=== PATIENT | female | born 1930 | race Two or more races ===

== ENCOUNTER 2021-04-07 06:48 | Emergency (ER) | payer MEDICARE, OTHER ==
[~2021-04-07] VITALS: Ht 165.1 cm; Wt 72.6 kg
[~2021-04-07 06:48] MED LIST: ALLO100T PO; AMIO200T33 PO; APIX2.5T PO; GABA-339 PO; HYDR-4072 PO; LEVO125T PO; METO1TAB77 PO; TRAZ100T3 PO
[2021-04-07 07:36] VITALS: BP 184/104
[2021-04-07] MEDS ORDERED: cloNIDine HCL 0.1 MG TAB PO ONE (08:00)
[2021-04-07] MEDS ORDERED: FUROSEMIDE 20 MG/2 ML VIAL IV ONE (10:45)
[2021-04-07 11:05] LABS: Basophils # (auto) 0.1 10 ^3/uL (0-0.2); Basophils % (auto) 1.1 % (0.0-2.0); Eosinophils # (auto) 0 10 ^3/uL (0-0.8); Hematocrit 43.3 % (36.0-46.0); Hemoglobin 13.7 g/dL (12.2-16.2); Lymphocytes # (auto) 0.8 10 ^3/uL (0.4-5.4); Mean Corpuscular Hemoglobin 32.3 pg (28.0-32.0); Mean Corpuscular Hgb Conc. 31.5 g/dL (32.0-36.0); Mean Corpuscular Volume 102.5 fL (80.0-100.0); Monocytes # (auto) 0.2 10 ^3/uL (0-1.3); Monocytes % (auto) 4.3 % (0.0-12.0); Neutrophils # (auto) 3.5 10 ^3/uL (1.6-8.6); Neutrophils % (auto) 76.6 % (37.0-80.0); Red Blood Cells 4.22 10^6/uL (4.0-5.20); Red Cell Distribution Width 19.9 % (11.8-14.3); White Blood Cell 4.6 10^3/uL (4.4-10.8)
[2021-04-07 11:15] LABS: INR 1.66 (0.9-1.15); Partial Thromboplastin Time 31.8 sec (23.6-33.0)
[2021-04-07 11:22] LABS: Albumin 2.5 g/dL (3.4-5.0); Calcium 9.8 mg/dL (8.5-10.1); Chloride 112 mmol/L (98-107); Potassium 4.6 mmol/L (3.5-5.1); Sodium 140 mmol/L (136-145)
[2021-04-07 11:31] LABS: Alanine Aminotransferase 12 U/L (13-56); Alkaline Phosphatase 340 U/L (45-117); Anion Gap 2 (5-15); Aspartate Aminotransferase 25 U/L (15-37); BUN/Creatinine Ratio 29.2; Bilirubin, Total 0.6 mg/dL (0.2-1.0); Blood Urea Nitrogen 28 mg/dL (7-18); Carbon Dioxide 26 mmol/L (21-32); GFR African American 71 mL/min; GFR Non-African American 58 mL/min; Glucose 82 mg/dL (74-106); Total Protein 6.4 g/dL (6.4-8.2)
== END 2021-04-07 15:07 | disposition home or self-care (01) ==
LOC: ER 06:48 → EDBD 06:48 → ER 15:07
DX: M25.552 Pain in left hip (principal); I11.0 Hypertensive heart disease with heart failure; I50.9 Heart failure, unspecified; M88.9 Osteitis deformans of unspecified bone; Z86.73 Personal history of transient ischemic attack (TIA), and cerebral infarction without residual deficits
CPT/HCPCS: 36415; 70450; 71045; 73700; 80053; 84484; 85025; 85610; 85730; 93005

== ENCOUNTER 2021-06-17 10:31 | Inpatient (IN) | payer MEDICARE, OTHER ==
[~2021-06-17] VITALS: Ht 160 cm; Wt 64.0 kg
[2021-06-17] MEDS ORDERED: methylPREDNISolone SOD SUCC 125 MG/2 ML VL IV ONE (12:00)
[2021-06-17 12:32] LABS: Basophils # (auto) 0 10 ^3/uL (0-0.2); Basophils % (auto) 0.7 % (0.0-2.0); Eosinophils # (auto) 0.1 10 ^3/uL (0-0.8); Lymphocytes # (auto) 0.6 10 ^3/uL (0.4-5.4)
[2021-06-17 12:39] LABS: Eosinophils % (auto) 1.1 % (0.0-7.0); Hematocrit 41.4 % (36.0-46.0); Hemoglobin 13.5 g/dL (12.2-16.2); Lymphocytes % (auto) 9.4 % (10.0-50.0); Mean Corpuscular Hemoglobin 33.9 pg (28.0-32.0); Mean Corpuscular Hgb Conc. 32.6 g/dL (32.0-36.0); Mean Corpuscular Volume 103.9 fL (80.0-100.0); Monocytes # (auto) 0.5 10 ^3/uL (0-1.3); Monocytes % (auto) 7.4 % (0.0-12.0); Neutrophils # (auto) 5.1 10 ^3/uL (1.6-8.6); Neutrophils % (auto) 81.4 % (37.0-80.0); Nucleated Red Blood Cells % 0.2 %; Red Blood Cells 3.98 10^6/uL (4.0-5.20); Red Cell Distribution Width 17.6 % (11.8-14.3); White Blood Cell 6.2 10^3/uL (4.4-10.8)
[2021-06-17 12:45] LABS: Albumin 2.6 g/dL (3.4-5.0); Calcium 9.4 mg/dL (8.5-10.1); Potassium 4.5 mmol/L (3.5-5.1)
[2021-06-17 13:01] LABS: BUN/Creatinine Ratio 28.8; Bilirubin, Total 0.7 mg/dL (0.2-1.0); Total Protein 6.5 g/dL (6.4-8.2)
[2021-06-17] MEDS ORDERED: NITROGLYCERIN 0.4 MG SL TAB SL PRN (21:00)
[2021-06-17] MEDS ORDERED: cefTRIAXone 1GM/50ML D5W 50 ML IV ONE (21:00)
[2021-06-17] MEDS ORDERED: ACETAMINOPHEN 325 MG TAB PO PRN (21:00)
[2021-06-17] MEDS ORDERED: AZITHROMYCIN 500MG/ 250ML 250 ML IV ONE (21:00)
[2021-06-17] MEDS ORDERED: ALBUTEROL SULF 2.5 MG/0.5ML(0.5%) NEB SOLN NEB PRN (21:00)
[2021-06-17] MEDS ORDERED: LORazepam 2MG/ML-1ML VIAL IV ONE ×2 (21:00→23:15)
[2021-06-17] MEDS ORDERED: FUROSEMIDE 20 MG/2 ML VIAL IV ONE (21:00)
[2021-06-17] MEDS ORDERED: ONDANSETRON HCL 4 MG/2 ML VIAL IV PRN (21:00)
[2021-06-17] MEDS: MORPHINE SULFATE INJECTION 2 MG/ML SYRG IV PRN (22:06)
[2021-06-17] MEDS: GABAPENTIN 300 MG CAP PO SCH (22:27)
[2021-06-17] MEDS: METOPROLOL TARTRATE 50 MG TAB PO SCH (22:27)
[2021-06-17] MEDS: ASCORBIC ACID 500 MG TAB PO SCH (22:28)
[2021-06-17] MEDS ORDERED: LORazepam 2MG/ML-1ML VIAL ONE (23:16)
[2021-06-18] MEDS: MORPHINE SULFATE INJECTION 2 MG/ML SYRG IV PRN ×3 (02:47→04:26)
[2021-06-18] MEDS: LEVOTHYROXINE SODIUM 50 MCG TAB PO SCH (06:39)
[2021-06-18 09:10] LABS: Basophils # (auto) 0 10 ^3/uL (0-0.2); Basophils % (auto) 0.3 % (0.0-2.0); Eosinophils # (auto) 0 10 ^3/uL (0-0.8); Monocytes # (auto) 0.1 10 ^3/uL (0-1.3); Neutrophils # (auto) 1.8 10 ^3/uL (1.6-8.6); White Blood Cell 2.2 10^3/uL (4.4-10.8)
[2021-06-18 09:12] LABS: Calcium 9.8 mg/dL (8.5-10.1); Potassium 5.3 mmol/L (3.5-5.1)
[2021-06-18 09:13] LABS: Eosinophils % (auto) 0.3 % (0.0-7.0); Hematocrit 46.4 % (36.0-46.0); Hemoglobin 14.9 g/dL (12.2-16.2); Lymphocytes # (auto) 0.3 10 ^3/uL (0.4-5.4); Lymphocytes % (auto) 14.3 % (10.0-50.0); Mean Corpuscular Hemoglobin 33.4 pg (28.0-32.0); Mean Corpuscular Hgb Conc. 32.2 g/dL (32.0-36.0); Monocytes % (auto) 3.3 % (0.0-12.0); Neutrophils % (auto) 81.8 % (37.0-80.0); Nucleated Red Blood Cells % 0.5 %; Red Blood Cells 4.48 10^6/uL (4.0-5.20); Red Cell Distribution Width 17.5 % (11.8-14.3)
[2021-06-18 09:14] LABS: Mean Corpuscular Volume 103.7 fL (80.0-100.0)
[2021-06-18] MEDS: cefTRIAXone 1GM/50ML D5W 50 ML IV SCH (09:14)
[2021-06-18 09:15] LABS: Urine Amorphous Crystal FEW /hpf (None Seen); Urine Bacteria FEW /hpf (None Seen); Urine Blood 1+ /uL (Negative); Urine Hyaline Cast MOD /lpf (0 - 2); Urine Mucus FEW (None Seen); Urine Specific Gravity 1.008 (1.001-1.035); Urine WBC 100 /hpf (0 - 5); Urine WBC Clumps PRESENT /hpf (None Seen)
[2021-06-18 09:16] LABS: Bilirubin, Total 0.6 mg/dL (0.2-1.0); Total Protein 6.7 g/dL (6.4-8.2)
[2021-06-18] MEDS: DexAMETHasone SOD PHOS 10MG/1ML VIAL INJ IV SCH (09:58)
[2021-06-18] MEDS: AZITHROMYCIN 500MG/ 250ML 250 ML IV SCH (09:58)
[2021-06-18] MEDS ORDERED: FUROSEMIDE 20 MG TAB PO SCH (10:00)
[2021-06-18] MEDS ORDERED: ZINC SULFATE 220mg CAP or TAB PO SCH (10:00)
[2021-06-18] MEDS: APIXABAN 2.5 MG TAB PO SCH (10:11)
[2021-06-18] MEDS: AMIODARONE HCL 200 MG TAB PO SCH (10:11)
[2021-06-18] MEDS: METOPROLOL TARTRATE 50 MG TAB PO SCH ×2 (10:12→21:01)
[2021-06-18] MEDS: PANTOPRAZOLE 40 MG TAB PO SCH (10:12)
[2021-06-18] MEDS: ASCORBIC ACID 500 MG TAB PO SCH (10:12)
[2021-06-18] MEDS: GABAPENTIN 300 MG CAP PO SCH ×2 (10:12→21:01)
[2021-06-18 10:35] VITALS: BP 147/77
[2021-06-18] MEDS ORDERED: OMEP20TA PO (10:57)
[2021-06-18] MEDS ORDERED: TEMA30CA PO (10:58)
[2021-06-18] MEDS ORDERED: FUROSEMIDE 20 MG/2 ML VIAL IV ONE (11:45)
[2021-06-18] MEDS ORDERED: LORazepam 2MG/ML-1ML VIAL IV ONE (22:30)
[2021-06-19] MEDS: MORPHINE SULFATE INJECTION 2 MG/ML SYRG IV PRN (00:27)
[2021-06-19] MEDS: LEVOTHYROXINE SODIUM 50 MCG TAB PO SCH (06:31)
[2021-06-19 08:22] LABS: Albumin 3.1 g/dL (3.4-5.0); Calcium 9.6 mg/dL (8.5-10.1); Potassium 5.1 mmol/L (3.5-5.1)
[2021-06-19 08:28] LABS: Bilirubin, Total 0.6 mg/dL (0.2-1.0); Total Protein 6.5 g/dL (6.4-8.2)
[2021-06-19] MEDS: cefTRIAXone 1GM/50ML D5W 50 ML IV SCH (08:45)
[2021-06-19] MEDS: GABAPENTIN 300 MG CAP PO SCH ×2 (10:00→22:40)
[2021-06-19] MEDS: APIXABAN 2.5 MG TAB PO SCH (10:00)
[2021-06-19] MEDS: AMIODARONE HCL 200 MG TAB PO SCH (10:00)
[2021-06-19] MEDS: METOPROLOL TARTRATE 50 MG TAB PO SCH ×2 (10:00→22:39)
[2021-06-19] MEDS: PANTOPRAZOLE 40 MG TAB PO SCH (10:00)
[2021-06-19] MEDS: FUROSEMIDE 20 MG/2 ML VIAL IV SCH (10:12)
[2021-06-19] MEDS: DexAMETHasone SOD PHOS 10MG/1ML VIAL INJ IV SCH (10:12)
[2021-06-19] MEDS: AZITHROMYCIN 500MG/ 250ML 250 ML IV SCH (10:12)
[2021-06-19 21:10] VITALS: BP 148/90
[2021-06-19 22:00] VITALS: BP 148/90
[2021-06-19] MEDS ORDERED: TEMAZEPAM 15 MG CAP PO ONE (23:00)
[2021-06-20 05:00] VITALS: BP 148/98
[2021-06-20] MEDS: LEVOTHYROXINE SODIUM 50 MCG TAB PO SCH (06:45)
[2021-06-20 08:00] VITALS: BP 138/82
[2021-06-20] MEDS: cefTRIAXone 1GM/50ML D5W 50 ML IV SCH (09:20)
[2021-06-20] MEDS: FUROSEMIDE 20 MG/2 ML VIAL IV SCH (09:21)
[2021-06-20] MEDS: APIXABAN 2.5 MG TAB PO SCH (09:22)
[2021-06-20] MEDS: AMIODARONE HCL 200 MG TAB PO SCH (09:22)
[2021-06-20] MEDS: GABAPENTIN 300 MG CAP PO SCH (09:23)
[2021-06-20] MEDS: METOPROLOL TARTRATE 50 MG TAB PO SCH (09:23)
[2021-06-20] MEDS: PANTOPRAZOLE 40 MG TAB PO SCH (09:23)
[2021-06-20] MEDS ORDERED: AZITHROMYCIN 250 MG TAB PO ONE (10:45)
[2021-06-20] MEDS ORDERED: TEMAZEPAM 15 MG CAP PO PRN (10:45)
[2021-06-20] MEDS ORDERED: LEVO500T31 PO (11:33)
[2021-06-20] MEDS ORDERED: FURO20TA3 PO (11:34)
[2021-06-20 12:36] VITALS: BP 159/98
[2021-06-21] MEDS ORDERED: AZITHROMYCIN 250 MG TAB PO SCH (10:00)
[2021-07-06] MEDS ORDERED: FOLI1TAB6 PO (05:04)
[2021-07-06] MEDS ORDERED: DOCU100T15 PO (05:04)
[2021-07-06] MEDS ORDERED: ALPR0.5T7 PO (05:04)
== END 2021-06-20 16:50 | disposition home or self-care (01) | DRG 177 ==
LOC: EDBD 10:31 → ER 10:31 → TELE 20:51 → TELE-CENTR 06-19 20:34
PROVIDERS: ADMIT Nurse Practitioner; ATTEND Internal Medicine Nephrology
DX: J15.6 Pneumonia due to other Gram-negative bacteria (principal); I50.23 Acute on chronic systolic (congestive) heart failure; J96.21 Acute and chronic respiratory failure with hypoxia; I13.0 Hypertensive heart and chronic kidney disease with heart failure and stage 1 through stage 4 chronic kidney disease, or unspecified chronic kidney disease; J44.0 Chronic obstructive pulmonary disease with (acute) lower respiratory infection; J98.11 Atelectasis; F03.90 Unspecified dementia, unspecified severity, without behavioral disturbance, psychotic disturbance, mood disturbance, and anxiety; N18.9 Chronic kidney disease, unspecified; I35.0 Nonrheumatic aortic (valve) stenosis; M19.90 Unspecified osteoarthritis, unspecified site; K21.9 Gastro-esophageal reflux disease without esophagitis; Z20.822 Contact with and (suspected) exposure to COVID-19; Z86.73 Personal history of transient ischemic attack (TIA), and cerebral infarction without residual deficits; Z87.891 Personal history of nicotine dependence; Z95.0 Presence of cardiac pacemaker
CPT/HCPCS: 36415; 70450; 71045; 71250; 80053; 81001; 82728; 83880; 84484; 85025; 85379; 86141; 87040; 87070; 87205; 87426; 93005; 93306; 96374; G0378; J0696; J1100

== ENCOUNTER 2021-10-14 11:28 | Inpatient (IN) | payer MEDICARE ==
[~2021-10-14] VITALS: Ht 157.5 cm; Wt 60.9 kg
[~2021-10-14 11:28] MED LIST changes: +ALPR0.5T7 PO; +DOCU100T15 PO; +FOLI1TAB6 PO; +LEVO500T31 PO; +OMEP20TA PO; +TEMA30CA PO
[2021-10-14 13:34] LABS: Basophils # (auto) 0 10 ^3/uL (0-0.2); Basophils % (auto) 0.6 % (0.0-2.0); Eosinophils # (auto) 0.1 10 ^3/uL (0-0.8); Eosinophils % (auto) 2.4 % (0.0-7.0); Lymphocytes # (auto) 0.7 10 ^3/uL (0.4-5.4); Nucleated Red Blood Cells % 0.2 %; White Blood Cell 4.3 10^3/uL (4.4-10.8)
[2021-10-14 13:36] LABS: Hematocrit 37.2 % (36.0-46.0); Hemoglobin 12.2 g/dL (12.2-16.2); Lymphocytes % (auto) 15.6 % (10.0-50.0); Mean Corpuscular Hemoglobin 34.9 pg (28.0-32.0); Mean Corpuscular Hgb Conc. 32.9 g/dL (32.0-36.0); Mean Corpuscular Volume 106.3 fL (80.0-100.0); Monocytes # (auto) 0.5 10 ^3/uL (0-1.3); Monocytes % (auto) 10.6 % (0.0-12.0); Neutrophils # (auto) 3.1 10 ^3/uL (1.6-8.6); Neutrophils % (auto) 70.8 % (37.0-80.0); Red Cell Distribution Width 16.8 % (11.8-14.3)
[2021-10-14 13:49] LABS: Albumin 2.9 g/dL (3.4-5.0); Calcium 9.1 mg/dL (8.5-10.1); Magnesium 1.8 mg/dL (1.6-2.6); Potassium 4.9 mmol/L (3.5-5.1)
[2021-10-14 13:56] LABS: BUN/Creatinine Ratio 25.8; Bilirubin, Total 0.7 mg/dL (0.2-1.0); Total Protein 6.3 g/dL (6.4-8.2)
[2021-10-14 16:34] LABS: Urine Bacteria MOD /hpf (None Seen); Urine Blood 2+ /uL (Negative); Urine WBC 2643 /hpf (0 - 5); Urine WBC Clumps PRESENT /hpf (None Seen)
[2021-10-14] MEDS ORDERED: VANCOMYCIN 1GM/250ML 250 ML IV ONE (16:45)
[2021-10-14] MEDS ORDERED: CEFEPIME 1 GM in SODIUM CHL 0.9% 50 ML IV ONE (16:45)
[2021-10-14] MEDS ORDERED: NITROGLYCERIN 0.4 MG SL TAB SL PRN (18:00)
[2021-10-14] MEDS ORDERED: MORPHINE SULFATE INJECTION 2 MG/ML SYRG IV PRN ×2 (18:00→22:15)
[2021-10-14] MEDS ORDERED: ISOSORBIDE MONONITRATE ER 60 MG TAB PO ONE (21:45)
[2021-10-14] MEDS ORDERED: BUMETANIDE 2.5mg/10ml (0.25 mg/ml) INJ IV ONE (21:45)
[2021-10-14] MEDS ORDERED: MEROPENEM 1GM IVPB 100 ML IV ONE (22:00)
[2021-10-14] MEDS ORDERED: MEROPENEM 1GM IVPB 100 ML IV SCH (22:00)
[2021-10-14] MEDS ORDERED: SODIUM CHLORIDE 0.9% 1,000 ML IV SCH (22:00)
[2021-10-14] MEDS ORDERED: MULTIPLE VITAMINS W/ MINERALS TAB PO ONE (22:15)
[2021-10-14] MEDS ORDERED: LACTULOSE 20Gm/30ML SOLN PO PRN (22:15)
[2021-10-14] MEDS ORDERED: HYDROcodone-ACET 5/325MG TAB PO ONE (22:15)
[2021-10-14] MEDS ORDERED: PANTOPRAZOLE 40 MG/10 ML VIAL INJ IV ONE (22:15)
[2021-10-14] MEDS ORDERED: SUCRALFATE 1 GM/10 ML ORAL SUSP PO ONE (22:15)
[2021-10-14] MEDS ORDERED: IPRATROPIUM BROM 0.5 MG/2.5ML INH SOL NEB PRN (22:15)
[2021-10-14] MEDS ORDERED: IPRATROPIUM BROM 0.5 MG/2.5ML INH SOL NEB ONE (22:15)
[2021-10-14] MEDS ORDERED: DOCUSATE SOD 100 MG CAP PO PRN (22:15)
[2021-10-14] MEDS ORDERED: MONTELUKAST SODIUM 10 MG TAB PO ONE (22:15)
[2021-10-14] MEDS ORDERED: FERROUS SULFATE 325mg EC TAB PO ONE (22:15)
[2021-10-14 22:40] VITALS: BP 169/92
[2021-10-15 00:04] LABS: INR 1.16 (0.9-1.15); Partial Thromboplastin Time 39.1 sec (23.6-33.0)
[2021-10-15 00:05] LABS: Magnesium 1.5 mg/dL (1.6-2.6); Phosphorus 2.6 mg/dL (2.5-4.90)
[2021-10-15] MEDS: OXYBUTYNIN CHL 5 MG TAB PO SCH ×3 (00:11→22:00)
[2021-10-15] MEDS: APIXABAN 2.5 MG TAB PO SCH ×3 (00:11→22:00)
[2021-10-15] MEDS: ATORVASTATIN 20 MG TAB PO SCH ×2 (00:13→22:01)
[2021-10-15] MEDS: MONTELUKAST SODIUM 10 MG TAB PO SCH ×2 (00:14→22:02)
[2021-10-15] MEDS: ISOSORBIDE MONONITRATE 20 MG TAB PO SCH ×3 (00:58→22:19)
[2021-10-15 01:55] VITALS: BP 166/71
[2021-10-15] MEDS ORDERED: IPRATROPIUM BROM 0.5 MG/2.5ML INH SOL NEB SCH (02:00)
[2021-10-15 05:00] VITALS: BP 126/71
[2021-10-15 05:39] LABS: Basophils # (auto) 0 10 ^3/uL (0-0.2); Eosinophils # (auto) 0.1 10 ^3/uL (0-0.8); Lymphocytes # (auto) 0.7 10 ^3/uL (0.4-5.4); Monocytes # (auto) 0.6 10 ^3/uL (0-1.3); Neutrophils # (auto) 3.8 10 ^3/uL (1.6-8.6); Nucleated Red Blood Cells % 0.1 %; White Blood Cell 5.2 10^3/uL (4.4-10.8)
[2021-10-15 05:42] LABS: Basophils % (auto) 0.5 % (0.0-2.0); Eosinophils % (auto) 1.2 % (0.0-7.0); Hematocrit 33.9 % (36.0-46.0); Hemoglobin 11.4 g/dL (12.2-16.2); Lymphocytes % (auto) 13.7 % (10.0-50.0); Mean Corpuscular Hemoglobin 35.3 pg (28.0-32.0); Mean Corpuscular Hgb Conc. 33.7 g/dL (32.0-36.0); Mean Corpuscular Volume 104.8 fL (80.0-100.0); Monocytes % (auto) 11.7 % (0.0-12.0); Neutrophils % (auto) 72.9 % (37.0-80.0); Red Blood Cells 3.23 10^6/uL (4.0-5.20); Red Cell Distribution Width 16.4 % (11.8-14.3)
[2021-10-15 05:53] LABS: INR 1.18 (0.9-1.15); Partial Thromboplastin Time 39.9 sec (23.6-33.0)
[2021-10-15 05:56] LABS: Potassium 4.5 mmol/L (3.5-5.1)
[2021-10-15] MEDS ORDERED: ACETYLCYSTEINE 10 %(100MG/ML) SOL 4ML NEB SCH (06:00)
[2021-10-15 06:08] LABS: Albumin 2.6 g/dL (3.4-5.0); BUN/Creatinine Ratio 28.7; Bilirubin, Total 0.9 mg/dL (0.2-1.0); CRP High Sensitivity 10.6 mg/dL (< 0.3); Calcium 9.6 mg/dL (8.5-10.1); Magnesium 1.5 mg/dL (1.6-2.6); Total Protein 5.9 g/dL (6.4-8.2); Uric Acid 2.6 mg/dL (2.6-6.0)
[2021-10-15] MEDS: BUMETANIDE 2.5mg/10ml (0.25 mg/ml) INJ IV SCH ×2 (06:56→18:00)
[2021-10-15] MEDS: SUCRALFATE 1 GM/10 ML ORAL SUSP PO SCH ×4 (07:07→21:59)
[2021-10-15] MEDS: LEVOTHYROXINE SODIUM 50 MCG TAB PO SCH (07:08)
[2021-10-15] MEDS: FERROUS SULFATE 325mg EC TAB PO SCH ×3 (08:00→18:00)
[2021-10-15 09:00] VITALS: BP 113/57
[2021-10-15] MEDS: METOPROLOL SUCCINATE XL 50 MG TAB PO SCH (10:00)
[2021-10-15] MEDS: CHOLECALCIFEROL (VITD3) 2,000 UNIT CAP/TAB PO SCH (10:00)
[2021-10-15] MEDS ORDERED: MEROPENEM 500MG IVPB 50 ML IV SCH (10:00)
[2021-10-15] MEDS: FOLIC ACID 1 MG TAB PO SCH (10:00)
[2021-10-15] MEDS: PANTOPRAZOLE 40 MG/10 ML VIAL INJ IV SCH (10:00)
[2021-10-15] MEDS: THIAMINE HCL 100 MG TAB PO SCH (10:00)
[2021-10-15] MEDS: CYANOCOBALAMIN 500 MCG TAB PO SCH (10:00)
[2021-10-15] MEDS: MULTIPLE VITAMINS W/ MINERALS TAB PO SCH (10:00)
[2021-10-15] MEDS: ALLOPURINOL 100 MG TAB PO SCH (10:00)
[2021-10-15] MEDS: AMIODARONE HCL 200 MG TAB PO SCH (10:00)
[2021-10-15] MEDS: ASPirin 81 mg TAB PO SCH (10:00)
[2021-10-15] MEDS ORDERED: cefTRIAXone 1GM/50ML D5W 50 ML IV ONE (11:15)
[2021-10-15 13:00] VITALS: BP 122/65
[2021-10-15 17:00] VITALS: BP 143/78
[2021-10-15] MEDS: BETHANECHOL CHLORIDE 25 MG TAB PO SCH (22:02)
[2021-10-16 05:12] VITALS: BP 133/69
[2021-10-16] MEDS: BETHANECHOL CHLORIDE 25 MG TAB PO SCH ×3 (06:30→21:52)
[2021-10-16] MEDS: SUCRALFATE 1 GM/10 ML ORAL SUSP PO SCH ×4 (06:30→21:48)
[2021-10-16] MEDS: LEVOTHYROXINE SODIUM 50 MCG TAB PO SCH (06:31)
[2021-10-16] MEDS: BUMETANIDE 2.5mg/10ml (0.25 mg/ml) INJ IV SCH (06:55)
[2021-10-16] MEDS: FERROUS SULFATE 325mg EC TAB PO SCH ×3 (08:00→18:00)
[2021-10-16 09:00] VITALS: BP 139/61
[2021-10-16] MEDS: cefTRIAXone 1GM/50ML D5W 50 ML IV SCH (09:00)
[2021-10-16] MEDS: MULTIPLE VITAMINS W/ MINERALS TAB PO SCH (09:51)
[2021-10-16] MEDS: PANTOPRAZOLE 40 MG/10 ML VIAL INJ IV SCH (09:54)
[2021-10-16] MEDS: THIAMINE HCL 100 MG TAB PO SCH (09:54)
[2021-10-16] MEDS: FOLIC ACID 1 MG TAB PO SCH (09:54)
[2021-10-16] MEDS: OXYBUTYNIN CHL 5 MG TAB PO SCH ×2 (09:55→21:49)
[2021-10-16] MEDS: SODIUM CHLORIDE 0.9% 1,000 ML IV SCH ×2 (10:00→21:52)
[2021-10-16] MEDS: ISOSORBIDE MONONITRATE 20 MG TAB PO SCH ×2 (10:00→21:51)
[2021-10-16] MEDS: APIXABAN 2.5 MG TAB PO SCH ×2 (10:02→21:49)
[2021-10-16] MEDS: AMIODARONE HCL 200 MG TAB PO SCH (10:02)
[2021-10-16] MEDS: ASPirin 81 mg TAB PO SCH (10:02)
[2021-10-16] MEDS: METOPROLOL SUCCINATE XL 50 MG TAB PO SCH (10:03)
[2021-10-16] MEDS: CYANOCOBALAMIN 500 MCG TAB PO SCH (10:04)
[2021-10-16] MEDS: CHOLECALCIFEROL (VITD3) 2,000 UNIT CAP/TAB PO SCH (10:04)
[2021-10-16] MEDS: ALLOPURINOL 100 MG TAB PO SCH (10:05)
[2021-10-16 13:00] VITALS: BP 139/92
[2021-10-16 17:00] VITALS: BP 158/71
[2021-10-16] MEDS: FUROSEMIDE 20 MG/2 ML VIAL IV SCH (18:00)
[2021-10-16] MEDS: MONTELUKAST SODIUM 10 MG TAB PO SCH (21:51)
[2021-10-16] MEDS: ATORVASTATIN 20 MG TAB PO SCH (21:51)
[2021-10-16 22:00] VITALS: BP 136/97
[2021-10-17] MEDS: SODIUM CHLORIDE 0.9% 1,000 ML IV SCH (03:33)
[2021-10-17 05:00] VITALS: BP 159/90
[2021-10-17] MEDS: FUROSEMIDE 20 MG/2 ML VIAL IV SCH ×2 (05:12→18:00)
[2021-10-17] MEDS: BETHANECHOL CHLORIDE 25 MG TAB PO SCH ×3 (05:12→21:22)
[2021-10-17] MEDS: SUCRALFATE 1 GM/10 ML ORAL SUSP PO SCH ×4 (05:13→21:22)
[2021-10-17] MEDS: LEVOTHYROXINE SODIUM 50 MCG TAB PO SCH (05:13)
[2021-10-17] MEDS: cefTRIAXone 1GM/50ML D5W 50 ML IV SCH (08:42)
[2021-10-17] MEDS: FERROUS SULFATE 325mg EC TAB PO SCH ×3 (08:42→18:00)
[2021-10-17 09:00] VITALS: BP 152/85
[2021-10-17] MEDS: APIXABAN 2.5 MG TAB PO SCH ×2 (10:00→21:17)
[2021-10-17] MEDS: ALLOPURINOL 100 MG TAB PO SCH (10:00)
[2021-10-17] MEDS: AMIODARONE HCL 200 MG TAB PO SCH (10:00)
[2021-10-17] MEDS: ISOSORBIDE MONONITRATE 20 MG TAB PO SCH ×2 (10:00→21:22)
[2021-10-17] MEDS: CYANOCOBALAMIN 500 MCG TAB PO SCH (10:00)
[2021-10-17] MEDS: ASPirin 81 mg TAB PO SCH (10:00)
[2021-10-17] MEDS: FOLIC ACID 1 MG TAB PO SCH (10:00)
[2021-10-17] MEDS: MULTIPLE VITAMINS W/ MINERALS TAB PO SCH (10:00)
[2021-10-17] MEDS: OXYBUTYNIN CHL 5 MG TAB PO SCH ×2 (10:00→21:17)
[2021-10-17] MEDS: THIAMINE HCL 100 MG TAB PO SCH (10:00)
[2021-10-17] MEDS: METOPROLOL SUCCINATE XL 50 MG TAB PO SCH (10:00)
[2021-10-17] MEDS: PANTOPRAZOLE 40 MG/10 ML VIAL INJ IV SCH (10:00)
[2021-10-17] MEDS: CHOLECALCIFEROL (VITD3) 2,000 UNIT CAP/TAB PO SCH (10:00)
[2021-10-17 13:00] VITALS: BP 160/92
[2021-10-17] MEDS: hydrALAZINE HCL 20 MG/ML VL IV PRN ×2 (13:42→21:24)
[2021-10-17 17:00] VITALS: BP 121/61
[2021-10-17 19:10] VITALS: BP 121/61
[2021-10-17] MEDS: ZOLPIDEM TARTRATE 5 MG TAB PO SCH (21:16)
[2021-10-17] MEDS: MONTELUKAST SODIUM 10 MG TAB PO SCH (21:19)
[2021-10-17] MEDS: ATORVASTATIN 20 MG TAB PO SCH (21:19)
[2021-10-17 22:00] VITALS: BP 165/91
[2021-10-18] MEDS: SODIUM CHLORIDE 0.9% 1,000 ML IV SCH ×2 (03:15→15:55)
[2021-10-18 05:00] VITALS: BP 137/87
[2021-10-18] MEDS: BETHANECHOL CHLORIDE 25 MG TAB PO SCH ×3 (06:00→21:10)
[2021-10-18] MEDS: FUROSEMIDE 20 MG/2 ML VIAL IV SCH ×2 (06:00→18:12)
[2021-10-18] MEDS: SUCRALFATE 1 GM/10 ML ORAL SUSP PO SCH ×4 (06:06→21:09)
[2021-10-18] MEDS: LEVOTHYROXINE SODIUM 50 MCG TAB PO SCH (06:07)
[2021-10-18 09:07] VITALS: BP 129/77
[2021-10-18] MEDS: FERROUS SULFATE 325mg EC TAB PO SCH ×3 (09:34→18:12)
[2021-10-18] MEDS: cefTRIAXone 1GM/50ML D5W 50 ML IV SCH (09:35)
[2021-10-18] MEDS: PANTOPRAZOLE 40 MG/10 ML VIAL INJ IV SCH (09:35)
[2021-10-18] MEDS: OXYBUTYNIN CHL 5 MG TAB PO SCH ×2 (09:37→21:09)
[2021-10-18] MEDS: CHOLECALCIFEROL (VITD3) 2,000 UNIT CAP/TAB PO SCH (09:37)
[2021-10-18] MEDS: ISOSORBIDE MONONITRATE 20 MG TAB PO SCH ×2 (09:37→21:17)
[2021-10-18] MEDS: THIAMINE HCL 100 MG TAB PO SCH (09:37)
[2021-10-18] MEDS: CYANOCOBALAMIN 500 MCG TAB PO SCH (09:38)
[2021-10-18] MEDS: METOPROLOL SUCCINATE XL 50 MG TAB PO SCH (09:39)
[2021-10-18] MEDS: MULTIPLE VITAMINS W/ MINERALS TAB PO SCH (09:39)
[2021-10-18] MEDS: ALLOPURINOL 100 MG TAB PO SCH (09:39)
[2021-10-18] MEDS: ASPirin 81 mg TAB PO SCH (09:39)
[2021-10-18] MEDS: FOLIC ACID 1 MG TAB PO SCH (09:39)
[2021-10-18] MEDS: AMIODARONE HCL 200 MG TAB PO SCH (09:40)
[2021-10-18] MEDS: APIXABAN 2.5 MG TAB PO SCH ×2 (09:40→21:10)
[2021-10-18 13:14] VITALS: BP 123/67
[2021-10-18 17:00] VITALS: BP 158/84
[2021-10-18] MEDS: hydrALAZINE HCL 20 MG/ML VL IV PRN (18:12)
[2021-10-18] MEDS: MONTELUKAST SODIUM 10 MG TAB PO SCH (21:09)
[2021-10-18] MEDS: ZOLPIDEM TARTRATE 5 MG TAB PO SCH (21:10)
[2021-10-18] MEDS: ATORVASTATIN 20 MG TAB PO SCH (21:10)
[2021-10-18 22:07] VITALS: BP 151/89
[2021-10-19] MEDS: SODIUM CHLORIDE 0.9% 1,000 ML IV SCH ×2 (04:40→17:04)
[2021-10-19 05:33] VITALS: BP 155/76
[2021-10-19] MEDS: LEVOTHYROXINE SODIUM 50 MCG TAB PO SCH (06:17)
[2021-10-19] MEDS: FUROSEMIDE 20 MG/2 ML VIAL IV SCH ×2 (06:17→17:03)
[2021-10-19] MEDS: BETHANECHOL CHLORIDE 25 MG TAB PO SCH ×3 (06:17→21:53)
[2021-10-19] MEDS: SUCRALFATE 1 GM/10 ML ORAL SUSP PO SCH ×4 (06:17→21:53)
[2021-10-19] MEDS: FERROUS SULFATE 325mg EC TAB PO SCH ×3 (08:25→17:03)
[2021-10-19 08:30] VITALS: BP 166/91
[2021-10-19] MEDS: CYANOCOBALAMIN 500 MCG TAB PO SCH (09:14)
[2021-10-19] MEDS: PANTOPRAZOLE 40 MG/10 ML VIAL INJ IV SCH (09:14)
[2021-10-19] MEDS: cefTRIAXone 1GM/50ML D5W 50 ML IV SCH (09:14)
[2021-10-19] MEDS: MULTIPLE VITAMINS W/ MINERALS TAB PO SCH (09:15)
[2021-10-19] MEDS: THIAMINE HCL 100 MG TAB PO SCH (09:15)
[2021-10-19] MEDS: CHOLECALCIFEROL (VITD3) 2,000 UNIT CAP/TAB PO SCH (09:15)
[2021-10-19] MEDS: ISOSORBIDE MONONITRATE 20 MG TAB PO SCH ×2 (09:16→22:20)
[2021-10-19] MEDS: APIXABAN 2.5 MG TAB PO SCH ×2 (09:17→22:45)
[2021-10-19] MEDS: METOPROLOL SUCCINATE XL 50 MG TAB PO SCH (09:17)
[2021-10-19] MEDS: OXYBUTYNIN CHL 5 MG TAB PO SCH ×2 (09:17→21:53)
[2021-10-19] MEDS: ASPirin 81 mg TAB PO SCH (09:17)
[2021-10-19] MEDS: AMIODARONE HCL 200 MG TAB PO SCH (09:18)
[2021-10-19] MEDS: FOLIC ACID 1 MG TAB PO SCH (09:18)
[2021-10-19] MEDS: ALLOPURINOL 100 MG TAB PO SCH (09:18)
[2021-10-19] MEDS ORDERED: levoFLOXacin 500MG 100 ML IV ONE (10:00)
[2021-10-19 12:30] VITALS: BP 164/72
[2021-10-19 16:33] VITALS: BP 178/81
[2021-10-19] MEDS: hydrALAZINE HCL 20 MG/ML VL IV PRN (17:03)
[2021-10-19 20:00] VITALS: BP 174/78
[2021-10-19] MEDS: ONDANSETRON HCL 4 MG/2 ML VIAL IV PRN (20:04)
[2021-10-19] MEDS: ZOLPIDEM TARTRATE 5 MG TAB PO SCH (21:53)
[2021-10-19] MEDS: ATORVASTATIN 20 MG TAB PO SCH (21:53)
[2021-10-19] MEDS: MONTELUKAST SODIUM 10 MG TAB PO SCH (21:53)
[2021-10-20 05:15] VITALS: BP 168/65
[2021-10-20] MEDS: SUCRALFATE 1 GM/10 ML ORAL SUSP PO SCH ×4 (06:35→22:08)
[2021-10-20] MEDS: FUROSEMIDE 20 MG/2 ML VIAL IV SCH ×2 (06:35→18:00)
[2021-10-20] MEDS: LEVOTHYROXINE SODIUM 50 MCG TAB PO SCH (06:35)
[2021-10-20] MEDS: BETHANECHOL CHLORIDE 25 MG TAB PO SCH ×3 (06:35→22:09)
[2021-10-20] MEDS: ONDANSETRON HCL 4 MG/2 ML VIAL IV PRN (06:49)
[2021-10-20] MEDS: SODIUM CHLORIDE 0.9% 1,000 ML IV SCH ×2 (07:20→22:07)
[2021-10-20 09:00] VITALS: BP 113/70
[2021-10-20] MEDS: FERROUS SULFATE 325mg EC TAB PO SCH ×3 (09:54→18:00)
[2021-10-20] MEDS: ASPirin 81 mg TAB PO SCH (09:55)
[2021-10-20] MEDS: levoFLOXacin 250MG 50 ML IV SCH (09:55)
[2021-10-20] MEDS: FOLIC ACID 1 MG TAB PO SCH (09:55)
[2021-10-20] MEDS: PANTOPRAZOLE 40 MG/10 ML VIAL INJ IV SCH (09:55)
[2021-10-20] MEDS: THIAMINE HCL 100 MG TAB PO SCH (09:56)
[2021-10-20] MEDS: OXYBUTYNIN CHL 5 MG TAB PO SCH ×2 (09:56→22:08)
[2021-10-20] MEDS: AMIODARONE HCL 200 MG TAB PO SCH (09:56)
[2021-10-20] MEDS: APIXABAN 2.5 MG TAB PO SCH ×2 (09:56→22:08)
[2021-10-20] MEDS: CYANOCOBALAMIN 500 MCG TAB PO SCH (09:57)
[2021-10-20] MEDS: ISOSORBIDE MONONITRATE 20 MG TAB PO SCH ×2 (09:57→22:09)
[2021-10-20] MEDS: CHOLECALCIFEROL (VITD3) 2,000 UNIT CAP/TAB PO SCH (09:57)
[2021-10-20] MEDS: MULTIPLE VITAMINS W/ MINERALS TAB PO SCH (09:57)
[2021-10-20] MEDS: METOPROLOL SUCCINATE XL 50 MG TAB PO SCH (09:57)
[2021-10-20] MEDS: ALLOPURINOL 100 MG TAB PO SCH (09:57)
[2021-10-20 17:00] VITALS: BP 192/90
[2021-10-20] MEDS: hydrALAZINE HCL 20 MG/ML VL IV PRN (20:30)
[2021-10-20 20:49] VITALS: BP 170/82
[2021-10-20 22:00] VITALS: BP 170/89
[2021-10-20] MEDS: ZOLPIDEM TARTRATE 5 MG TAB PO SCH (22:08)
[2021-10-20] MEDS: MONTELUKAST SODIUM 10 MG TAB PO SCH (22:09)
[2021-10-20] MEDS: ATORVASTATIN 20 MG TAB PO SCH (22:09)
[2021-10-21] VITALS: BP 149/88
[2021-10-21 02:13] VITALS: BP 162/93
[2021-10-21] MEDS: hydrALAZINE HCL 20 MG/ML VL IV PRN (02:14)
[2021-10-21 05:00] VITALS: BP 130/72
[2021-10-21] MEDS: FUROSEMIDE 20 MG/2 ML VIAL IV SCH (05:30)
[2021-10-21] MEDS: BETHANECHOL CHLORIDE 25 MG TAB PO SCH ×2 (05:31→14:00)
[2021-10-21] MEDS: LEVOTHYROXINE SODIUM 50 MCG TAB PO SCH (05:31)
[2021-10-21] MEDS: SUCRALFATE 1 GM/10 ML ORAL SUSP PO SCH ×2 (05:31→11:30)
[2021-10-21] MEDS: FERROUS SULFATE 325mg EC TAB PO SCH ×2 (08:00→12:24)
[2021-10-21 09:00] VITALS: BP 145/97
[2021-10-21] MEDS: levoFLOXacin 250MG 50 ML IV SCH (09:25)
[2021-10-21] MEDS: SODIUM CHLORIDE 0.9% 1,000 ML IV SCH (09:25)
[2021-10-21] MEDS: PANTOPRAZOLE 40 MG/10 ML VIAL INJ IV SCH (09:26)
[2021-10-21] MEDS: ASPirin 81 mg TAB PO SCH (09:26)
[2021-10-21] MEDS: AMIODARONE HCL 200 MG TAB PO SCH (09:27)
[2021-10-21] MEDS: FOLIC ACID 1 MG TAB PO SCH (09:27)
[2021-10-21] MEDS: APIXABAN 2.5 MG TAB PO SCH (09:27)
[2021-10-21] MEDS: ISOSORBIDE MONONITRATE 20 MG TAB PO SCH (09:27)
[2021-10-21] MEDS: THIAMINE HCL 100 MG TAB PO SCH (09:27)
[2021-10-21] MEDS: OXYBUTYNIN CHL 5 MG TAB PO SCH (09:27)
[2021-10-21] MEDS: CYANOCOBALAMIN 500 MCG TAB PO SCH (09:28)
[2021-10-21] MEDS: ALLOPURINOL 100 MG TAB PO SCH (09:28)
[2021-10-21] MEDS: METOPROLOL SUCCINATE XL 50 MG TAB PO SCH (09:28)
[2021-10-21] MEDS: CHOLECALCIFEROL (VITD3) 2,000 UNIT CAP/TAB PO SCH (09:28)
[2021-10-21] MEDS: MULTIPLE VITAMINS W/ MINERALS TAB PO SCH (09:28)
[2021-10-21] MEDS ORDERED: ZOLP5TAB PO ×2 (10:41→17:00)
[2021-10-21] MEDS ORDERED: AMOX500T3 PO (10:41)
[2021-10-21] MEDS ORDERED: BET25T PO (10:41)
[2021-10-21] MEDS: AMOXICILLIN TRIHYDRATE 250 MG CAP PO SCH ×2 (11:00→14:00)
[2021-10-21 12:31] VITALS: BP 143/85
[2021-10-21 15:22] VITALS: BP 145/97
== END 2021-10-21 17:28 | DRG 871 ==
LOC: ER 11:28 → EDBD 11:28 → TELE 17:49 → TELE-WESTW 22:40
PROVIDERS: ADMIT Hospitalist; ATTEND Family Medicine
DX: A41.9 Sepsis, unspecified organism (principal); N17.0 Acute kidney failure with tubular necrosis; I50.33 Acute on chronic diastolic (congestive) heart failure; G93.41 Metabolic encephalopathy; I48.19 Other persistent atrial fibrillation; I16.9 Hypertensive crisis, unspecified; F02.81 Dementia in other diseases classified elsewhere, unspecified severity, with behavioral disturbance; F11.20 Opioid dependence, uncomplicated; I13.0 Hypertensive heart and chronic kidney disease with heart failure and stage 1 through stage 4 chronic kidney disease, or unspecified chronic kidney disease; J44.0 Chronic obstructive pulmonary disease with (acute) lower respiratory infection; J44.1 Chronic obstructive pulmonary disease with (acute) exacerbation; E66.2 Morbid (severe) obesity with alveolar hypoventilation; N13.6 Pyonephrosis; N39.0 Urinary tract infection, site not specified; Z66 Do not resuscitate; I50.82 Biventricular heart failure; I35.0 Nonrheumatic aortic (valve) stenosis; G89.4 Chronic pain syndrome; G30.9 Alzheimer's disease, unspecified; R09.02 Hypoxemia; N18.32 Chronic kidney disease, stage 3b; E78.5 Hyperlipidemia, unspecified; Z20.822 Contact with and (suspected) exposure to COVID-19; B95.2 Enterococcus as the cause of diseases classified elsewhere; E03.9 Hypothyroidism, unspecified; E78.00 Pure hypercholesterolemia, unspecified; I27.20 Pulmonary hypertension, unspecified; K21.9 Gastro-esophageal reflux disease without esophagitis; M10.9 Gout, unspecified; M19.90 Unspecified osteoarthritis, unspecified site; N32.89 Other specified disorders of bladder; Z79.01 Long term (current) use of anticoagulants; Z68.24 Body mass index [BMI] 24.0-24.9, adult; Z82.49 Family history of ischemic heart disease and other diseases of the circulatory system; Z82.61 Family history of arthritis; Z83.3 Family history of diabetes mellitus; Z86.73 Personal history of transient ischemic attack (TIA), and cerebral infarction without residual deficits; Z95.0 Presence of cardiac pacemaker; Z99.81 Dependence on supplemental oxygen; Z79.899 Other long term (current) drug therapy; Z88.5 Allergy status to narcotic agent; Z88.2 Allergy status to sulfonamides
CPT/HCPCS: 36415; 36600; 70450; 71045; 74176; 76775; 80053; 80061; 81001; 82728; 82805; 83036; 83605; 83615; 83690; 83735; 83880; 83970; 84100; 84443; 84484; 84550; 85025; 85379; 85610; 85652; 85730; 86141; 87040; 87081; 87086; 87088; 87186; 92610; 93005; 93306; 94640; 96365; 96367; 96375; 97110; 97530; C9113; G0378; J0696; J1956; J2185; J2405

== ENCOUNTER 2022-01-31 09:44 | Inpatient (IN) | payer MEDICARE ==
[~2022-01-31] VITALS: Ht 149.9 cm; Wt 58.0 kg
[~2022-01-31 09:44] MED LIST changes: +AMOX500T3 PO; +BET25T PO; +ZOLP5TAB PO
[2022-01-31 10:51] LABS: Basophils # (auto) 0.1 10 ^3/uL (0-0.2); Eosinophils # (auto) 0 10 ^3/uL (0-0.8); Hemoglobin 12.1 g/dL (12.2-16.2); Lymphocytes # (auto) 0.5 10 ^3/uL (0.4-5.4); Monocytes # (auto) 0.3 10 ^3/uL (0-1.3); Neutrophils # (auto) 12.8 10 ^3/uL (1.6-8.6); Nucleated Red Blood Cells % 0.1 %; White Blood Cell 13.7 10^3/uL (4.4-10.8)
[2022-01-31 10:53] LABS: Basophils % (auto) 0.5 % (0.0-2.0); Eosinophils % (auto) 0.3 % (0.0-7.0); Hematocrit 38.7 % (36.0-46.0); Lymphocytes % (auto) 3.4 % (10.0-50.0); Mean Corpuscular Hemoglobin 33.8 pg (28.0-32.0); Mean Corpuscular Hgb Conc. 31.4 g/dL (32.0-36.0); Mean Corpuscular Volume 107.7 fL (80.0-100.0); Monocytes % (auto) 2.3 % (0.0-12.0); Neutrophils % (auto) 93.5 % (37.0-80.0); Red Blood Cells 3.59 10^6/uL (4.0-5.20); Red Cell Distribution Width 16.7 % (11.8-14.3)
[2022-01-31 11:10] LABS: Albumin 2.9 g/dL (3.4-5.0); Calcium 9.4 mg/dL (8.5-10.1); Magnesium 1.4 mg/dL (1.6-2.6)
[2022-01-31 11:21] LABS: BUN/Creatinine Ratio 16.2; Bilirubin, Total 0.6 mg/dL (0.2-1.0); Total Protein 6.5 g/dL (6.4-8.2)
[2022-01-31] MEDS ORDERED: cefTRIAXone 1GM/50ML D5W 50 ML IV ONE (12:45)
[2022-01-31 13:49] LABS: INR 1.13 (0.9-1.15); Partial Thromboplastin Time 32.6 sec (23.6-33.0)
[2022-01-31 16:10] LABS: Urine Bacteria NONE SEEN /hpf (None Seen); Urine Blood Negative /uL (Negative); Urine Hyaline Cast FEW /lpf (0 - 2); Urine Mucus FEW (None Seen); Urine Specific Gravity 1.015 (1.001-1.035); Urine WBC 4 /hpf (0 - 5)
[2022-01-31] MEDS: MAGNESIUM SULFATE 1GM/100ML 100 ML IV SCH ×2 (16:14→17:22)
[2022-01-31] MEDS ORDERED: IOHEXOL 350 MG/ML 100ML IJ ONE (18:53)
[2022-01-31] MEDS ORDERED: ACETAMINOPHEN 325 MG TAB PO PRN (19:00)
[2022-01-31] MEDS ORDERED: ONDANSETRON HCL 4 MG/2 ML VIAL IV PRN (19:00)
[2022-01-31] MEDS ORDERED: DOCUSATE SOD 100 MG CAP PO PRN (19:00)
[2022-01-31] MEDS ORDERED: ALBUTEROL SULF 2.5 MG/0.5ML(0.5%) NEB SOLN NEB PRN (19:00)
[2022-01-31] MEDS ORDERED: MORPHINE SULFATE INJ 2 MG/ml SYRG IV PRN (19:00)
[2022-01-31] MEDS ORDERED: NITROGLYCERIN 0.4 MG SL TAB SL PRN (19:00)
[2022-01-31] MEDS ORDERED: ACETAMINOPHEN 650 MG RECT SUPP PR ONE (20:15)
[2022-01-31 20:54] VITALS: BP 108/43
[2022-01-31] MEDS: BETHANECHOL CHLORIDE 25 MG TAB PO SCH (22:00)
[2022-01-31] MEDS: FUROSEMIDE 40 MG/4 ML VIAL IV SCH (22:00)
[2022-01-31] MEDS: METOPROLOL TARTRATE 50 MG TAB PO SCH (22:00)
[2022-01-31] MEDS: GABAPENTIN 300 MG CAP PO SCH (22:00)
[2022-01-31] MEDS: APIXABAN 2.5 MG TAB PO SCH (22:00)
[2022-01-31] MEDS ORDERED: PATIENTS OWN MEDICATION (Omeprazole (Gnp Omeprazole) 1 TAB) PO SCH (22:00)
[2022-01-31] MEDS: SODIUM CHLOR 0.9% PF (SALINE LOCK) 10ML VIAL/SYR IV SCH (22:18)
[2022-01-31] MEDS: ALBUTEROL SULF 2.5 MG/0.5ML(0.5%) NEB SOLN NEB SCH (23:14)
[2022-02-01 05:00] VITALS: BP 99/36
[2022-02-01] MEDS: SODIUM CHLOR 0.9% PF (SALINE LOCK) 10ML VIAL/SYR IV SCH ×3 (05:43→21:59)
[2022-02-01] MEDS: BETHANECHOL CHLORIDE 25 MG TAB PO SCH ×3 (05:44→22:00)
[2022-02-01] MEDS: ALBUTEROL SULF 2.5 MG/0.5ML(0.5%) NEB SOLN NEB SCH ×3 (05:44→18:28)
[2022-02-01] MEDS: GABAPENTIN 300 MG CAP PO SCH ×3 (05:44→22:00)
[2022-02-01 09:00] VITALS: BP 95/73
[2022-02-01] MEDS: AZITHROMYCIN 500MG/ 250ML 250 ML IV SCH (09:50)
[2022-02-01] MEDS: APIXABAN 2.5 MG TAB PO SCH ×2 (10:00→21:59)
[2022-02-01] MEDS: METOPROLOL TARTRATE 50 MG TAB PO SCH ×2 (10:00→21:59)
[2022-02-01] MEDS: FOLIC ACID 1 MG TAB PO SCH (10:00)
[2022-02-01] MEDS: ALLOPURINOL 100 MG TAB PO SCH (10:00)
[2022-02-01] MEDS: FUROSEMIDE 40 MG/4 ML VIAL IV SCH ×2 (10:00→22:00)
[2022-02-01] MEDS ORDERED: PATIENTS OWN MEDICATION (Docusate Sodium 100 MG) PO SCH (10:00)
[2022-02-01] MEDS: AMIODARONE HCL 200 MG TAB PO SCH (10:00)
[2022-02-01] MEDS ORDERED: PATIENTS OWN MEDICATION (Levothyroxine Sodium (Synthroid) 1 TAB) PO SCH (10:00)
[2022-02-01 13:00] VITALS: BP 100/31
[2022-02-01 18:26] VITALS: BP 159/86
[2022-02-01 22:00] VITALS: BP 126/50
[2022-02-02] MEDS: ALBUTEROL SULF 2.5 MG/0.5ML(0.5%) NEB SOLN NEB SCH ×5 (01:47→23:23)
[2022-02-02 05:00] VITALS: BP 125/82
[2022-02-02] MEDS: LEVOTHYROXINE SODIUM 100 MCG TAB PO SCH (07:00)
[2022-02-02 08:31] LABS: Eosinophils # (auto) 0 10 ^3/uL (0-0.8); Hemoglobin 10.2 g/dL (12.2-16.2); Lymphocytes # (auto) 0.4 10 ^3/uL (0.4-5.4); Mean Corpuscular Volume 106.1 fL (80.0-100.0); Neutrophils % (auto) 95.3 % (37.0-80.0)
[2022-02-02 08:32] LABS: Basophils # (auto) 0.1 10 ^3/uL (0-0.2); Basophils % (auto) 0.3 % (0.0-2.0); Hematocrit 32.3 % (36.0-46.0); Lymphocytes % (auto) 2.1 % (10.0-50.0); Mean Corpuscular Hemoglobin 33.6 pg (28.0-32.0); Mean Corpuscular Hgb Conc. 31.7 g/dL (32.0-36.0); Monocytes # (auto) 0.5 10 ^3/uL (0-1.3); Monocytes % (auto) 2.3 % (0.0-12.0); Neutrophils # (auto) 19.8 10 ^3/uL (1.6-8.6); Red Blood Cells 3.05 10^6/uL (4.0-5.20); Red Cell Distribution Width 16.4 % (11.8-14.3); White Blood Cell 20.8 10^3/uL (4.4-10.8)
[2022-02-02 09:00] VITALS: BP 134/64
[2022-02-02] MEDS: AZITHROMYCIN 500MG/ 250ML 250 ML IV SCH (09:38)
[2022-02-02] MEDS: FUROSEMIDE 40 MG/4 ML VIAL IV SCH ×2 (09:38→22:08)
[2022-02-02] MEDS: AMIODARONE HCL 200 MG TAB PO SCH (10:00)
[2022-02-02] MEDS: APIXABAN 2.5 MG TAB PO SCH ×2 (10:00→22:00)
[2022-02-02] MEDS: FOLIC ACID 1 MG TAB PO SCH (10:00)
[2022-02-02] MEDS: PANTOPRAZOLE 40 MG TAB PO SCH (10:00)
[2022-02-02] MEDS: ALLOPURINOL 100 MG TAB PO SCH (10:00)
[2022-02-02] MEDS: LEVOTHYROXINE SODIUM 25 MCG TAB PO SCH (10:00)
[2022-02-02] MEDS: METOPROLOL TARTRATE 50 MG TAB PO SCH ×2 (10:00→22:00)
[2022-02-02 13:00] VITALS: BP 119/50
[2022-02-02] MEDS: GABAPENTIN 300 MG CAP PO SCH ×2 (14:00→22:00)
[2022-02-02] MEDS: BETHANECHOL CHLORIDE 25 MG TAB PO SCH ×2 (14:00→22:00)
[2022-02-02] MEDS: SODIUM CHLOR 0.9% PF (SALINE LOCK) 10ML VIAL/SYR IV SCH ×2 (18:46→22:14)
[2022-02-02 20:15] VITALS: BP 129/109
[2022-02-02 22:35] VITALS: BP 137/53
[2022-02-03] MEDS: GABAPENTIN 300 MG CAP PO SCH ×3 (05:48→22:00)
[2022-02-03] MEDS: BETHANECHOL CHLORIDE 25 MG TAB PO SCH ×3 (05:49→22:00)
[2022-02-03] MEDS: SODIUM CHLOR 0.9% PF (SALINE LOCK) 10ML VIAL/SYR IV SCH ×3 (06:03→22:27)
[2022-02-03] MEDS: LEVOTHYROXINE SODIUM 100 MCG TAB PO SCH (06:32)
[2022-02-03] MEDS: ALBUTEROL SULF 2.5 MG/0.5ML(0.5%) NEB SOLN NEB SCH ×4 (06:43→23:41)
[2022-02-03 09:00] VITALS: BP 133/83
[2022-02-03] MEDS: FUROSEMIDE 40 MG/4 ML VIAL IV SCH ×2 (09:43→22:35)
[2022-02-03] MEDS: AZITHROMYCIN 500MG/ 250ML 250 ML IV SCH (09:43)
[2022-02-03] MEDS: FOLIC ACID 1 MG TAB PO SCH (10:00)
[2022-02-03] MEDS: APIXABAN 2.5 MG TAB PO SCH (10:00)
[2022-02-03] MEDS: AMIODARONE HCL 200 MG TAB PO SCH (10:00)
[2022-02-03] MEDS: LEVOTHYROXINE SODIUM 25 MCG TAB PO SCH (10:00)
[2022-02-03] MEDS: ALLOPURINOL 100 MG TAB PO SCH (10:00)
[2022-02-03] MEDS: METOPROLOL TARTRATE 50 MG TAB PO SCH ×2 (10:00→22:00)
[2022-02-03] MEDS: PANTOPRAZOLE 40 MG TAB PO SCH (10:00)
[2022-02-03 12:36] VITALS: BP 112/49
[2022-02-03] MEDS ORDERED: ACETAMINOPHEN 650 MG RECT SUPP PR PRN (16:15)
[2022-02-03 16:26] VITALS: BP 147/72
[2022-02-03 18:11] VITALS: BP 147/72
[2022-02-03 19:09] LABS: Albumin 2.7 g/dL (3.4-5.0); BUN/Creatinine Ratio 34.8; Potassium 3.6 mmol/L (3.5-5.1)
[2022-02-03] MEDS ORDERED: DEXTROSE (50%) 50ML SYRG IV SCH (20:00)
[2022-02-03] MEDS ORDERED: CLINIMIX PER PHARMACY 0 ML IV SCH (21:00)
[2022-02-03] MEDS ORDERED: CLINIMIX PER PHARMACY IV NR (21:00)
[2022-02-03 22:00] VITALS: BP 133/84
[2022-02-03 22:05] VITALS: BP 133/84
[2022-02-04 05:00] VITALS: BP 144/65
[2022-02-04] MEDS: SODIUM CHLOR 0.9% PF (SALINE LOCK) 10ML VIAL/SYR IV SCH ×3 (05:46→22:06)
[2022-02-04] MEDS: BETHANECHOL CHLORIDE 25 MG TAB PO SCH ×3 (05:46→22:00)
[2022-02-04] MEDS: GABAPENTIN 300 MG CAP PO SCH ×3 (05:46→22:00)
[2022-02-04] MEDS: LEVOTHYROXINE SODIUM 100 MCG TAB PO SCH (05:47)
[2022-02-04] MEDS: InsuLIN REG 1unit/0.01ml Soln (100units/ml) SC SCH ×4 (06:22→17:47)
[2022-02-04] MEDS: ACCU-CHEK COMFORT CURVE STRIP VI SCH ×4 (06:29→17:48)
[2022-02-04 06:48] LABS: Potassium 3.2 mmol/L (3.5-5.1)
[2022-02-04 06:58] LABS: Albumin 2.9 g/dL (3.4-5.0); BUN/Creatinine Ratio 37.4; Bilirubin, Total 1.2 mg/dL (0.2-1.0); Calcium 10.2 mg/dL (8.5-10.1); Magnesium 1.4 mg/dL (1.6-2.6); Phosphorus 2.3 mg/dL (2.5-4.90); Total Protein 7.2 g/dL (6.4-8.2)
[2022-02-04 08:00] VITALS: BP 151/73
[2022-02-04] MEDS: cefTRIAXone 1GM/50ML D5W 50 ML IV SCH (09:42)
[2022-02-04] MEDS: ENOXAPARIN SOD 30 MG/0.3 ML SYRINGE SC SCH (09:42)
[2022-02-04] MEDS: AZITHROMYCIN 500MG/ 250ML 250 ML IV SCH (09:43)
[2022-02-04] MEDS: FUROSEMIDE 40 MG/4 ML VIAL IV SCH ×2 (09:44→22:14)
[2022-02-04] MEDS: ALBUTEROL SULF 2.5 MG/0.5ML(0.5%) NEB SOLN NEB SCH ×2 (09:53→18:51)
[2022-02-04] MEDS: METOPROLOL TARTRATE 50 MG TAB PO SCH ×2 (09:58→22:00)
[2022-02-04] MEDS: PANTOPRAZOLE 40 MG TAB PO SCH (09:58)
[2022-02-04] MEDS: LEVOTHYROXINE SODIUM 25 MCG TAB PO SCH (09:58)
[2022-02-04] MEDS: FOLIC ACID 1 MG TAB PO SCH (09:58)
[2022-02-04] MEDS: AMIODARONE HCL 200 MG TAB PO SCH (09:58)
[2022-02-04] MEDS: ALLOPURINOL 100 MG TAB PO SCH (09:59)
[2022-02-04] MEDS ORDERED: POTASSIUM CHL 20MEQ/100ML 100 ML IV ONE (11:45)
[2022-02-04 12:45] VITALS: BP 151/73
[2022-02-04 13:00] VITALS: BP 117/52
[2022-02-04] MEDS ORDERED: CLINIMIX PER PHARMACY IV NR (20:00)
[2022-02-04] MEDS ORDERED: dilTIAZem 25 MG/5 ML VIAL IV ONE (21:15)
[2022-02-04 21:50] VITALS: BP 173/87
[2022-02-04] MEDS ORDERED: METOPROLOL TARTRATE 1MG/1ML-5ML VIAL IV ONE (22:00)
[2022-02-05] VITALS (7 sets, daily range): BP systolic 109–163; BP diastolic 40–101
[2022-02-05] MEDS: ALBUTEROL SULF 2.5 MG/0.5ML(0.5%) NEB SOLN NEB SCH ×4 (00:17→18:17)
[2022-02-05] MEDS: ACCU-CHEK COMFORT CURVE STRIP VI SCH ×4 (00:18→18:10)
[2022-02-05] MEDS: InsuLIN REG 1unit/0.01ml Soln (100units/ml) SC SCH ×4 (00:18→18:00)
[2022-02-05] MEDS: GABAPENTIN 300 MG CAP PO SCH ×2 (05:30→13:31)
[2022-02-05] MEDS: SODIUM CHLOR 0.9% PF (SALINE LOCK) 10ML VIAL/SYR IV SCH ×2 (05:30→14:24)
[2022-02-05] MEDS: BETHANECHOL CHLORIDE 25 MG TAB PO SCH ×2 (05:30→13:31)
[2022-02-05] MEDS: LEVOTHYROXINE SODIUM 100 MCG TAB PO SCH (05:41)
[2022-02-05 06:24] LABS: Albumin 2.8 g/dL (3.4-5.0); Calcium 10.1 mg/dL (8.5-10.1); Magnesium 1.4 mg/dL (1.6-2.6); Potassium 3.1 mmol/L (3.5-5.1)
[2022-02-05 06:28] LABS: BUN/Creatinine Ratio 50.5; Total Protein 7.1 g/dL (6.4-8.2)
[2022-02-05] MEDS: cefTRIAXone 1GM/50ML D5W 50 ML IV SCH (09:35)
[2022-02-05] MEDS: FUROSEMIDE 40 MG/4 ML VIAL IV SCH (09:36)
[2022-02-05] MEDS: AZITHROMYCIN 500MG/ 250ML 250 ML IV SCH (09:36)
[2022-02-05] MEDS: AMIODARONE HCL 200 MG TAB PO SCH (09:37)
[2022-02-05] MEDS: FOLIC ACID 1 MG TAB PO SCH (09:37)
[2022-02-05] MEDS: METOPROLOL TARTRATE 50 MG TAB PO SCH (09:37)
[2022-02-05] MEDS: LEVOTHYROXINE SODIUM 25 MCG TAB PO SCH (09:38)
[2022-02-05] MEDS: PANTOPRAZOLE 40 MG TAB PO SCH (09:38)
[2022-02-05] MEDS: ALLOPURINOL 100 MG TAB PO SCH (09:39)
[2022-02-05] MEDS: ENOXAPARIN SOD 30 MG/0.3 ML SYRINGE SC SCH (09:39)
[2022-02-05] MEDS ORDERED: POTASSIUM PHOSP 22MEQ(15MMOLE) in NS 100 ML IV ONE ×2 (10:30→13:00)
[2022-02-05] MEDS ORDERED: POTASSIUM CHL 20MEQ/100ML 100 ML IV ONE (10:30)
[2022-02-05] MEDS ORDERED: POTASSIUM EFFERVESENT TAB 25 MEQ PO ONE (10:30)
[2022-02-05] MEDS: MAGNESIUM SULFATE 1GM/100ML 100 ML IV SCH ×2 (13:23→14:23)
[2022-02-05] MEDS ORDERED: CYCL0.05 EACHEYE (16:07)
[2022-02-05] MEDS ORDERED: AMINO ACID INFUSION IN D10W 1,000 ML IV NR (20:00)
== END 2022-02-05 21:05 | disposition hospice, home (50) | DRG 193 ==
LOC: EDBD 09:44 → ER 09:44 → CENTRAL 18:53 → TELE-CENTR 22:43
PROVIDERS: ADMIT Internal Medicine; ATTEND Family Medicine
PROC: 5A0945A Assistance with Respiratory Ventilation, 24-96 Consecutive Hours, High Flow/Velocity Cannula (ICD-10-PCS; 2022-01-31)
PROC: 05HF33Z Insertion of Infusion Device into Left Cephalic Vein, Percutaneous Approach (ICD-10-PCS; principal; 2022-02-03)
PROC: B54NZZA Ultrasonography of Left Upper Extremity Veins, Guidance (ICD-10-PCS; 2022-02-03)
DX: J18.9 Pneumonia, unspecified organism (principal); I50.33 Acute on chronic diastolic (congestive) heart failure; J96.01 Acute respiratory failure with hypoxia; E44.0 Moderate protein-calorie malnutrition; I13.0 Hypertensive heart and chronic kidney disease with heart failure and stage 1 through stage 4 chronic kidney disease, or unspecified chronic kidney disease; J44.0 Chronic obstructive pulmonary disease with (acute) lower respiratory infection; J98.11 Atelectasis; N18.4 Chronic kidney disease, stage 4 (severe); N39.0 Urinary tract infection, site not specified; J44.1 Chronic obstructive pulmonary disease with (acute) exacerbation; Z66 Do not resuscitate; E83.42 Hypomagnesemia; F03.90 Unspecified dementia, unspecified severity, without behavioral disturbance, psychotic disturbance, mood disturbance, and anxiety; K21.9 Gastro-esophageal reflux disease without esophagitis; M19.90 Unspecified osteoarthritis, unspecified site; E78.00 Pure hypercholesterolemia, unspecified; M10.9 Gout, unspecified; Z20.822 Contact with and (suspected) exposure to COVID-19; I27.20 Pulmonary hypertension, unspecified; I35.0 Nonrheumatic aortic (valve) stenosis; E07.9 Disorder of thyroid, unspecified; M06.9 Rheumatoid arthritis, unspecified; Z99.81 Dependence on supplemental oxygen; Z51.5 Encounter for palliative care; Z82.49 Family history of ischemic heart disease and other diseases of the circulatory system; Z83.3 Family history of diabetes mellitus; Z86.73 Personal history of transient ischemic attack (TIA), and cerebral infarction without residual deficits; Z95.0 Presence of cardiac pacemaker
CPT/HCPCS: 36415; 36600; 51702; 71045; 80053; 80069; 81001; 82805; 82962; 83605; 83735; 83880; 84100; 84443; 84478; 84484; 85025; 85610; 85730; 87040; 87086; 93005; 94640; 96365; 96367; G0378; J0696; J1815; J3480